=== PATIENT | female | born 1990 | race Caucasian/White ===

== ENCOUNTER 2024-02-29 05:36 | Inpatient (IN) ==
[2024-02-29] MEDS: Lactated Ringers 1000 ml BAG 1,000 ML IV ONE ×2 (06:26→08:35)
[2024-02-29 06:41] LABS: Hematocrit 35.1 % (35-45); Hemoglobin 11.9 g/dL (11.5-14.3); Mean Corpuscular Hemoglobin 30.1 pg (27-33); Mean Corpuscular Hgb Conc 33.8 g/dL (31-36); Mean Corpuscular Volume 89.1 fL (80-97); Mean Platelet Volume 8.6 fL (7.5-11.2); Platelet Count 275 10^3/uL (150-450); Red Blood Count 3.94 10^6/uL (3.63-4.92); Red Cell Distribution Width 13.8 % (12-17); White Blood Count 13.3 10^3/uL (3.8-11.8)
[2024-02-29 07:27] LABS: ABS Basophils 0.1 10^3/uL (0.0-0.1); ABS Eosinophils 0.2 10^3/uL (0.0-0.5); ABS Lymphocytes 2.7 10^3/uL (1.0-4.8); ABS Monocytes 1.1 10^3/uL (0.0-0.9); ABS Neutrophils 9.2 10^3/uL (1.5-7.6); ABS Nucleated RBC 0.01 10^3/ul; Eosinophil % 1.5 %; Lymphocyte % 20.2 %; RBC Morphology Normal (Normal)
[2024-02-29] MEDS: Buffered Lidocaine 1% SYRIN 1 ml INTRADERM ONE (07:30)
[2024-02-29] MEDS ORDERED: Morphine PF AMP (0.5MG/ML) 5 MG/10 ML AMP ONE (07:40)
[2024-02-29] MEDS ORDERED: Ondansetron 4 mg VIAL 2 MG/ML 2 ml VIAL ONE (07:41)
[2024-02-29] MEDS ORDERED: Phenylephrine 40 mcg/mL 10mL (400mcg) SYRINGE ONE (07:41)
[2024-02-29] MEDS ORDERED: Oxytocin 10 UNITS/ML 1 ML VIAL ONE (07:41)
[2024-02-29] MEDS ORDERED: Acetaminophen IV 1 GM/100ML 1,000 MG/100 ML BAG IV ONE (07:44)
[2024-02-29] MEDS ORDERED: HYDROmorphone 1 MG/1 ML SYRINGE IV PRN (07:49)
[2024-02-29] MEDS ORDERED: Naloxone 0.4 mg VIAL 0.4 mg/ml 1 ml VIAL IV PRN (07:49)
[2024-02-29] MEDS ORDERED: Naloxone 0.4 mg VIAL 0.4 mg/ml 1 ml VIAL IV PUSH PRN (07:51)
[2024-02-29] MEDS ORDERED: Ondansetron 4 mg VIAL 2 MG/ML 2 ml VIAL IV PRN (07:51)
[2024-02-29] MEDS: ceFAZolin 2 GM PREMIX 2 GM/50 ML BAG IV ONE (07:52)
[2024-02-29] MEDS: Sodium Citrate/Citric Acid LIQ 15 ML UDC PO ONE (07:52)
[2024-02-29] MEDS: Lactated Ringers 1000 ml BAG 1,000 ML IV SCH (08:00)
[2024-02-29] MEDS ORDERED: fentaNYL 100 mcg/2 ml 50 MCG/ML VIAL ONE (08:53)
[2024-02-29] MEDS ORDERED: Midazolam 2 mg/2 ml VIAL 1 mg/ml 2 ml VIAL (2 mg) ONE (08:55)
[2024-02-29] MEDS ORDERED: Glycerin ADULT 2.4 gm SUPP PR PRN (09:27)
[2024-02-29] MEDS ORDERED: Witch Hazel PAD JAR TOPICAL PRN (09:27)
[2024-02-29] MEDS ORDERED: Dibucaine 1% OINT 28.35 GM TUBE PR PRN (09:27)
[2024-02-29] MEDS: Oxytocin in LR 20,000 MILLI.UNIT/1,000 ML BAG IV SCH (09:30)
[2024-02-29 09:49] LABS: Urine Benzodiazepine Screen None Detected (None Detect); Urine Cannabinoids Screen None Detected (None Detect); Urine Opiates Screen None Detected (None Detect)
[2024-02-29 09:54] LABS: Urine Appearance Clear; Urine Bilirubin Negative (Negative); Urine Blood Negative (Negative); Urine Color Colorless; Urine Glucose Negative (Negative); Urine Ketones Negative (Negative); Urine Nitrite Negative (Negative); Urine Protein Negative (Negative); Urine Specific Gravity 1.007 (1.002-1.030); Urine Urobilinogen Negative (Negative)
[2024-02-29] MEDS ORDERED: Lactated Ringers 1000 ml BAG 1,000 ML IV SCH (10:00)
[2024-02-29] MEDS: Acetaminophen IV 1 GM/100ML 1,000 MG/100 ML BAG IV PRN (16:06)
[2024-03-01 07:29] LABS: ABS Basophils 0.1 10^3/uL (0.0-0.1); ABS Eosinophils 0.2 10^3/uL (0.0-0.5); ABS Lymphocytes 1.8 10^3/uL (1.0-4.8); Eosinophil % 1.8 %; Hematocrit 31.3 % (35-45); Hemoglobin 10.7 g/dL (11.5-14.3); Mean Corpuscular Hemoglobin 30.4 pg (27-33); Mean Corpuscular Hgb Conc 34.1 g/dL (31-36); Mean Corpuscular Volume 88.9 fL (80-97); Mean Platelet Volume 8.4 fL (7.5-11.2); Platelet Count 237 10^3/uL (150-450); Red Blood Count 3.51 10^6/uL (3.63-4.92); Red Cell Distribution Width 13.5 % (12-17); White Blood Count 12.2 10^3/uL (3.8-11.8)
== END 2024-03-02 11:17 | disposition home or self-care (01) | DRG 540 ==
LOC: MCHOB 05:36
PROVIDERS: ADMIT Obstetrics & Gynecology; ATTEND Obstetrics & Gynecology